=== PATIENT | male | born 1965 | race Caucasian/White ===

== ENCOUNTER 2019-01-06 23:55 | Inpatient (IN) | payer SELFPAY, OTHER ==
[2019-01-07] MEDS ORDERED: Lorazepam 2 MG/ML VIAL ONE ×2 (00:10→00:29)
[2019-01-07 00:28] LABS: Hemoglobin 14.9 g/dL (14.0-18.0); Mean Corpuscular HGB CONC 33.9 g/dL (32.0-36.0); Mean Corpuscular Hemoglobin 32.1 pg (27.0-31.0); Mean Corpuscular Volume 94.7 fL (78.0-98.0); Mean Platelet Volume 7.3 fL (7.4-10.4); Platelet Count 234 thou/uL (130-400); RBC Distribution Width 12.3 % (11.5-14.5); Red Blood Cell (RBC) Count 4.65 mill/uL (4.70-6.10)
[2019-01-07 00:41] LABS: ALT (SGPT) 26 U/L (8-55); AST (SGOT) 23 U/L (5-34); Albumin 3.9 g/dL (3.5-5.0); Alcohol 80 mg/dL (Less than 10); Alkaline Phosphatase 72 U/L (40-110); Anion Gap 16 mmol/L (10-20); BUN (Urea Nitrogen) 11 mg/dL (8.4-25.7); Bilirubin, Total 0.5 mg/dL (0.2-1.2); CK (CPK) 148 U/L (30-200); Calc. Creatinine Clearance 0 mL/min (70-130); Calcium 8.3 mg/dL (7.8-10.44); Carbon Dioxide 17 mmol/L (22-29); Chloride 110 mmol/L (98-107); Estimated GFR-MDRD Greater than 90; Globulin 2.1 g/dL (2.4-3.5); Glucose 83 mg/dL (70-105); Sodium 139 mmol/L (136-145)
[2019-01-07 00:45] LABS: Band 7 % (5-11); Eosinophils 1 % (0-10); Lymphocytes 2 % (21-51); MDiff Complete? YES; Monocytes 5 % (0-10); Neutrophil 85 % (42-75)
--- NOTE | 2019-01-07 03:34 | PDOC.HHP ---
Hospitalist HPI - History of Present Illness Chest pain History of Present Illness: Patient is a 53 year old male with PMH cocaine, alcohol abuse, HCV infection who presents to ER today for chest pain and cocaine/alcohol abuse. Patient refuses to talk to me currently, states "nope" and "im fine" to all questions. All information taken from nursing and ER/EMS medical records. Patient presented today with a sharp chest pain and tachycardia after [id number] dose of cocaine today. Afebrile, displayed sinus tachycardia between 100 and 120 on arrival, improved to 90s with ativan and other interventions in ED, currently patient denies chest pain. He also reported drinking a 6 pack between noon and 3pm. Cocaine use was later in night, used 15g cocaine as opposed to the normal 5-10 that he normally takes. Currenlty patient sleeping peacefully, blood pressure wnl. He had an EKG in the ED wiuthout acute changes. per ER records patinet endorsed SI and HI earlier, on suicide watch and MHMR consult placed in ED Hospitalist ROS - Review of Systems ROS unobtainable: due to mental status (patient refusing to talk) - Medication Medications: reviewed, no known home meds Hospitalist History - Past Medical History Other Medical History: cocaine abuse alcohol abuse - Past Surgical History Past Surgical History: reports: no pertinent history - Family History Family History: reports: no pertinent history - Social History Other Social History: alcohol, cocaine abuse - Exam General Appearance: NAD, awake alert Eye: PERRL, anicteric sclera ENT: normocephalic atraumatic, no oropharyngeal lesions, moist mucosa Neck: supple, symmetric, no JVD, no thyromegaly, no lymphadenopathy, no carotid bruit Heart: RRR, no murmur, no gallops, no rubs, normal peripheral pulses Respiratory: CTAB, no wheezes, no rales, no ronchi, normal chest expansion, no tachypnea, normal percussion Gastrointestinal: soft, non-tender, non-distended, normal bowel sounds, no palpable masses, no hepatomegaly, no splenomegaly, no bruit Extremities: no cyanosis, no clubbing, no edema Skin: normal turgor, no lesions, no rashes Neurological: cranial nerve grossly intact, normal sensation to touch, no weakness, no focal deficits, no new deficit Musculoskeletal: normal tone, normal strength, no muscle wasting Psychiatric: normal affect, normal behavior, A&O x 3 Hospitalist Results - Labs Result Diagrams: 01/07/19 00:13 01/07/19 00:13 Lab results: WBC 19.0 thou/uL (4.8-10.8) H 01/07/19 00:13 Hgb 14.9 g/dL (14.0-18.0) 01/07/19 00:13 Hct 44.0 % (42.0-52.0) 01/07/19 00:13 MCV 94.7 fL (78.0-98.0) 01/07/19 00:13 Plt Count 234 thou/uL (130-400) 01/07/19 00:13 Band Neuts % (Manual) 7 % (5-11) 01/07/19 00:13 Sodium 139 mmol/L (136-145) 01/07/19 00:13 Potassium 4.0 mmol/L (3.5-5.1) 01/07/19 00:13 Chloride 110 mmol/L (98-107) H 01/07/19 00:13 Carbon Dioxide 17 mmol/L (22-29) L 01/07/19 00:13 BUN 11 mg/dL (8.4-25.7) 01/07/19 00:13 Creatinine 0.75 mg/dL (0.7-1.3) 01/07/19 00:13 Glucose 83 mg/dL (70-105) 01/07/19 00:13 Calcium 8.3 mg/dL (7.8-10.44) 01/07/19 00:13 Total Bilirubin 0.5 mg/dL (0.2-1.2) 01/07/19 00:13 AST 23 U/L (5-34) 01/07/19 00:13 ALT 26 U/L (8-55) 01/07/19 00:13 Alkaline Phosphatase 72 U/L (40-110) 01/07/19 00:13 Creatine Kinase 148 U/L (30-200) 01/07/19 00:13 Troponin I 0.013 ng/mL (< 0.028) 01/07/19 00:13 Serum Total Protein 6.0 g/dL (6.0-8.3) 01/07/19 00:13 Albumin 3.9 g/dL (3.5-5.0) 01/07/19 00:13 Additional comment: VITAL SIGNS MonJan 07, 2019 03:26 JOHN Parmar Azar BP: 119/62, Pulse: 98, Resp: 28, Pain: 0, O2 sat: 94 on Room Air, Time: 01/07/2019 03:26. - EKG Interpretation EKG: Conduction normal, ST segments normal, T waves normal, [place] normal, sinus tach rate of 115. Hospitalist H&P A/P - Problem (1) Cocaine abuse Code(s): F14.10 - COCAINE ABUSE, UNCOMPLICATED Status: Acute (2) Chest pain Code(s): R07.9 - CHEST PAIN, UNSPECIFIED Status: Acute (3) Suicidal ideations Code(s): R45.851 - SUICIDAL IDEATIONS Status: Acute (4) Leukocytosis Code(s): D72.829 - ELEVATED WHITE BLOOD CELL COUNT, UNSPECIFIED Status: Acute (5) Sinus tachycardia Code(s): R00.0 - TACHYCARDIA, UNSPECIFIED Status: Acute - Plan Plan: admit to floor, continue to monitor, trend troponins, needs likely psychiatric evaluation for suicidal ideations once medically cleared, will possibly withdraw from cocaine and alcohol in future. for now calm on ativan, refusing to speak to me. will conitnue to monitor
[2019-01-07] MEDS ORDERED: Labetalol HCl 100 MG/20 ML VIAL SLOW IVP PRN (03:40)
[2019-01-07] MEDS ORDERED: Lorazepam 2 MG/ML VIAL SLOW IVP PRN (03:41)
[2019-01-07] MEDS ORDERED: Ondansetron PF 4 MG/2 ML Vial IVP PRN (03:41)
[2019-01-07] MEDS ORDERED: Senokot S 8.6-50 MG TAB PO PRN (03:41)
[2019-01-07] MEDS ORDERED: Bisacodyl 10 MG SUPP PR PRN (03:41)
[2019-01-07] MEDS ORDERED: Bisacodyl 5 MG TAB PO PRN (03:41)
[2019-01-07] MEDS ORDERED: Acetaminophen 325 MG TAB PO PRN ×2 (03:41→07:24)
[2019-01-07 04:14] VITALS: BMI 28.5
[2019-01-07 04:40] LABS: Troponin I 0.018 ng/mL (< 0.028)
[2019-01-07] MEDS: Sodium Chloride 0.9% 1,000 ML IV SCH ×3 (04:48→21:38)
[2019-01-07 07:17] LABS: Troponin I Less than 0.010 ng/mL (< 0.028)
[2019-01-07] MEDS ORDERED: Loratadine 10 MG TAB PO PRN (07:24)
[2019-01-07] MEDS ORDERED: Cepastat Lozenges 1 LOZ PO PRN (07:24)
[2019-01-07] MEDS ORDERED: Nitroglycerin 0.4 MG TAB (25 Tab Bottle) SL PRN (07:24)
[2019-01-07] MEDS ORDERED: Ondansetron ODT 4 MG TAB PO PRN (07:24)
[2019-01-07] MEDS ORDERED: hydrALAZINE 20 MG/ML VIAL SLOW IVP PRN (07:24)
[2019-01-07] MEDS ORDERED: Artificial Tears 18 DROP/0.9 ML EA EYE PRN (07:24)
[2019-01-07] MEDS ORDERED: Calcium Carbonate 500 MG ChewTAB PO PRN (07:24)
[2019-01-07] MEDS ORDERED: Sodium Chloride 0.65% Nasal 44 ML BOT EA NARE PRN (07:24)
[2019-01-07] MEDS ORDERED: Zolpidem Tartrate 5 MG TAB PO PRN (07:24)
[2019-01-07] MEDS ORDERED: Loperamide HCl 2 MG CAP PO PRN (07:24)
[2019-01-07 07:57] LABS: Cardiac Risk 3.6 (Less than 4.5)
[2019-01-07] MEDS: Thiamine 100 MG TAB PO SCH (09:43)
[2019-01-07] MEDS: Cyanocobalamin (Vitamin B-12) 1,000 MCG TAB PO SCH (09:43)
[2019-01-07] MEDS: Folic Acid 1 MG TAB PO SCH (09:43)
[2019-01-07] MEDS: Multivitamin W/ Minerals 1 TAB PO SCH (09:43)
[2019-01-07] MEDS: Famotidine 20 MG TAB PO SCH ×2 (09:43→21:36)
[2019-01-07] MEDS: Enoxaparin Sodium 40 MG/0.4 ML SYRINGE SC SCH (09:43)
[2019-01-07] MEDS: Diabetic Tussin 200 MG/10 ML UDCUP PO PRN ×3 (09:46→22:12)
--- NOTE | 2019-01-07 10:19 | PDOC.HOSPP ---
- Subjective Encounter Date: 01/07/19 Encounter Time: 07:40 Subjective: pt denies SI, he feels OK, no chest pain, no fever Patient seen and examined. No new complaints. No overnight events - Objective Vital Signs & Weight: Vital Signs (12 hours) Temp Pulse Resp BP Pulse Ox 01/07/19 07:43 98.9 F 96 24 H 137/79 93 L 01/07/19 04:00 106 H 24 H 121/70 97 Weight Weight 187 lb 6.287 oz I&O: 01/06/19 01/07/19 01/08/19 06:59 06:59 06:59 Intake Total 133 Balance 133 Result Diagrams: 01/07/19 00:13 01/07/19 00:13 Radiology Reviewed by me: Yes EKG Reviewed by me: Yes Hospitalist ROS - Review of Systems ENT: denies: ear pain, ear discharge, nose pain, nose discharge, nose congestion , mouth pain, mouth swelling, throat pain, throat swelling, other Respiratory: denies: cough, dry, shortness of breath, hemoptysis, SOB with excertion, pleuritic pain, sputum, wheezing, other Cardiovascular: denies: chest pain, palpitations, orthopnea, paroxysmal noc. dyspnea, edema, light headedness, other Gastrointestinal: denies: nausea, vomiting, abdominal pain, diarrhea, constipation, melena, hematochezia, other Genitourinary: denies: dysuria, frequency, incontinence, hematuria, retention, other Musculoskeletal: denies: neck pain, shoulder pain, arm pain, back pain, hand pain, leg pain, foot pain, other Skin: denies: rash, lesions, veronica, bruising, other - Medication Medications: Active Medications Generic Name Dose Route Start Last Admin Trade Name Fabianq PRN Reason Stop Dose Admin Cyanocobalamin 1,000 mcg 01/07/19 09:00 01/07/19 09:43 Vitamin B-12 PO 1,000 mcg DAILY JIMMIE Administration Enoxaparin Sodium 40 mg 01/07/19 09:00 01/07/19 09:43 Lovenox SC 40 mg 0900 JIMMIE Administration Famotidine 20 mg 01/07/19 09:00 01/07/19 09:43 Pepcid PO 20 mg BID JIMMIE Administration Folic Acid 1 mg 01/07/19 09:00 01/07/19 09:43 Folvite PO 1 mg DAILY JIMMIE Administration Guaifenesin 200 mg 01/07/19 07:24 01/07/19 09:46 Robitussin Sf PO 200 mg Q4H PRN Administration Cough Sodium Chloride 1,000 mls @ 125 mls/hr 01/07/19 03:45 01/07/19 04:48 Normal Saline 0.9% IV 1,000 mls .Q8H JIMMIE Administration Iron/Minerals/Multivitamins 1 tab 01/07/19 09:00 01/07/19 09:43 Theragran M PO 1 tab DAILY JIMMIE Administration Thiamine HCl 100 mg 01/07/19 09:00 01/07/19 09:43 Thiamine PO 100 mg DAILY JIMMIE Administration - Exam General Appearance: NAD, awake alert Eye: PERRL, anicteric sclera ENT: normocephalic atraumatic, no oropharyngeal lesions Neck: supple, symmetric, no JVD, no thyromegaly Heart: RRR, no murmur, no gallops, no rubs, normal peripheral pulses Respiratory: CTAB, no wheezes, no rales, no ronchi, normal chest expansion Gastrointestinal: soft, non-tender, non-distended, normal bowel sounds Extremities: no cyanosis, no clubbing, no edema Skin: normal turgor, no lesions, no rashes Neurological: cranial nerve grossly intact, no focal deficits Musculoskeletal: normal tone, normal strength, no muscle wasting Psychiatric: normal affect, normal behavior, A&O x 3 Hosp A/P (1) Chest pain Code(s): R07.9 - CHEST PAIN, UNSPECIFIED Status: Acute (2) Cocaine abuse Code(s): F14.10 - COCAINE ABUSE, UNCOMPLICATED Status: Acute (3) Leukocytosis Code(s): D72.829 - ELEVATED WHITE BLOOD CELL COUNT, UNSPECIFIED Status: Acute (4) Sinus tachycardia Code(s): R00.0 - TACHYCARDIA, UNSPECIFIED Status: Acute (5) Alcohol abuse Code(s): F10.10 - ALCOHOL ABUSE, UNCOMPLICATED Status: Chronic - Plan old records reviewed/req 01/07/19- pt does not have suicidal ideation, no need for sitter, continue to monitor today, repeat labs tomorrow, counselled to avoid polysubstance abuse, echo today
[2019-01-07 12:28] LABS: HBCM Index 0.07 S/CO (0-0.79); HBSAg Index 0.17 S/CO (0-0.99); Hep A IgM AB Non-Reactive (NonReactive); Hep B Surf Ag Non-Reactive S/CO (NonReactive); Hepatitis B Core IgM Abs Non-Reactive (NonReactive)
[2019-01-07 12:30] LABS: Hep C IgG Ab Reflex HepC Qnt (NonReactive); Hep C Index 12.63 S/CO (0-0.79)
[2019-01-07] MEDS ORDERED: Morphine 2 MG/ML SYRINGE SLOW IVP SCH (13:45)
[2019-01-07 14:10] LABS: Amphetamine Not Detected (NotDetected); Barbiturates Screen Not Detected (NotDetected); Benzodiazepine Screen Detected (NotDetected); Cocaine Metabolite Screen Detected (NotDetected); Medtox Control Line Valid? VALID (VALID); Medtox Reader # READER 1; Methadone Not Detected (NotDetected); Methamphetamine Not Detected (NotDetected); Opiate Screen Not Detected (NotDetected); Oxycodone Screen Not Detected (NotDetected); Phencyclidine (PCP) Not Detected (NotDetected); THC/Cannabinoid Screen Not Detected (NotDetected); Tricyclic Screen Not Detected (NotDetected)
[2019-01-07] MEDS: HYDROcodone/Acetaminophen 5/325 mg Tablet PO PRN ×2 (17:58→22:12)
[2019-01-08] MEDS: Diabetic Tussin 200 MG/10 ML UDCUP PO PRN (02:37)
[2019-01-08] MEDS: HYDROcodone/Acetaminophen 5/325 mg Tablet PO PRN ×5 (02:37→21:04)
[2019-01-08] MEDS: Sodium Chloride 0.9% 1,000 ML IV SCH (05:48)
[2019-01-08 06:19] LABS: #Basophils 0.1 thou/uL (0.0-0.2); #Eosinphils 0.3 thou/uL (0.0-0.7); #Lymphocytes 1.7 thou/uL (1.20-3.40); #Monocytes 1.4 thou/uL (0.11-0.59); #Neutrophils 12.3 thou/uL (1.40-6.50); %Basophils 0.5 % (0.0-1.0); %Eosinophils 2.1 % (0.0-10.0); %Lymphocytes 10.5 % (21.0-51.0); %Monocytes 9.1 % (0.0-10.0); %Neutrophils 77.8 % (42.0-75.0); Hemoglobin 13.6 g/dL (14.0-18.0); Mean Corpuscular HGB CONC 33.4 g/dL (32.0-36.0); Mean Corpuscular Volume 95.8 fL (78.0-98.0); Platelet Count 201 thou/uL (130-400); RBC Distribution Width 12.2 % (11.5-14.5); Red Blood Cell (RBC) Count 4.27 mill/uL (4.70-6.10); White Blood Cell (WBC) Count 15.8 thou/uL (4.8-10.8)
[2019-01-08 06:27] LABS: Anion Gap 9 mmol/L (10-20); BUN (Urea Nitrogen) 7 mg/dL (8.4-25.7); Calc. Creatinine Clearance 139 mL/min (70-130); Calcium 8.1 mg/dL (7.8-10.44); Carbon Dioxide 24 mmol/L (22-29); Chloride 106 mmol/L (98-107); Estimated GFR-MDRD Greater than 90; Glucose 108 mg/dL (70-105); Sodium 135 mmol/L (136-145)
[2019-01-08 06:34] LABS: Troponin I 0.016 ng/mL (< 0.028)
[2019-01-08] MEDS: Cyanocobalamin (Vitamin B-12) 1,000 MCG TAB PO SCH (08:53)
[2019-01-08] MEDS: guaiFENesin ER 600 MG TAB PO SCH ×2 (08:54→20:03)
[2019-01-08] MEDS: Enoxaparin Sodium 40 MG/0.4 ML SYRINGE SC SCH (08:54)
[2019-01-08] MEDS: Folic Acid 1 MG TAB PO SCH (08:54)
[2019-01-08] MEDS: Thiamine 100 MG TAB PO SCH (08:54)
[2019-01-08] MEDS: Multivitamin W/ Minerals 1 TAB PO SCH (08:54)
[2019-01-08] MEDS: Famotidine 20 MG TAB PO SCH ×2 (08:54→20:03)
--- NOTE | 2019-01-08 11:01 | PDOC.HOSPP ---
- Subjective Encounter Date: 01/08/19 Encounter Time: 07:15 Subjective: pt has cough, has fever and he has high wbc count, his oxygen saturation also borderline - Objective Vital Signs & Weight: Vital Signs (12 hours) Temp Pulse Resp BP BP Pulse Ox 01/08/19 07:40 98.4 F 101 H 24 H 149/80 H 98 01/08/19 03:59 100.3 F H 92 18 137/79 97 01/07/19 23:35 98.7 F 101 H 21 H 133/80 95 Weight Weight 188 lb 4.8 oz I&O: 01/07/19 01/08/19 01/09/19 06:59 06:59 06:59 Intake Total 133 240 Output Total 500 600 Balance 133 500 -360 Result Diagrams: 01/08/19 05:37 01/08/19 05:37 EKG Reviewed by me: Yes Hospitalist ROS - Review of Systems Constitutional: reports: fever, weakness. denies: chills, sweats, malaise, other Respiratory: reports: cough, shortness of breath, SOB with excertion, sputum. denies: dry, hemoptysis, pleuritic pain, wheezing, other Cardiovascular: denies: chest pain, palpitations, orthopnea, paroxysmal noc. dyspnea, edema, light headedness, other Gastrointestinal: denies: nausea, vomiting, abdominal pain, diarrhea, constipation, melena, hematochezia, other Genitourinary: denies: dysuria, frequency, incontinence, hematuria, retention, other Musculoskeletal: denies: neck pain, shoulder pain, arm pain, back pain, hand pain, leg pain, foot pain, other Skin: denies: rash, lesions, veronica, bruising, other - Medication Medications: Active Medications Generic Name Dose Route Start Last Admin Trade Name Freq PRN Reason Stop Dose Admin Hydrocodone Bitart/Acetaminophen 1 tab 01/07/19 07:24 01/08/19 08:54 [place] 5/325 PO 1 tab Q4H PRN Administration Moderate Pain (4-6) Cyanocobalamin 1,000 mcg 01/07/19 09:00 01/08/19 08:53 Vitamin B-12 PO 1,000 mcg DAILY JIMMIE Administration Enoxaparin Sodium 40 mg 01/07/19 09:00 01/08/19 08:54 Lovenox SC 40 mg 0900 JIMMIE Administration Famotidine 20 mg 01/07/19 09:00 01/08/19 08:54 Pepcid PO 20 mg BID JIMMIE Administration Folic Acid 1 mg 01/07/19 09:00 01/08/19 08:54 Folvite PO 1 mg DAILY JIMMIE Administration Guaifenesin 200 mg 01/07/19 07:24 01/08/19 02:37 Robitussin Sf PO 200 mg Q4H PRN Administration Cough Guaifenesin 1,200 mg 01/08/19 09:00 01/08/19 08:54 Mucinex PO 1,200 mg Q12HR JIMMIE Administration Levofloxacin 750 mg/ Device 150 mls @ 100 mls/hr 01/08/19 08:00 01/08/19 08: 50 IVPB 150 mls 0800 JIMMIE Administration Iron/Minerals/Multivitamins 1 tab 01/07/19 09:00 01/08/19 08:54 Theragran M PO 1 tab DAILY JIMMIE Administration Ondansetron HCl 4 mg 01/07/19 03:41 01/07/19 17:58 Zofran IVP 4 mg Q6H PRN Administration Nausea/Vomiting Thiamine HCl 100 mg 01/07/19 09:00 01/08/19 08:54 Thiamine PO 100 mg DAILY JIMMIE Administration Throat Lozenges 1 meg 01/07/19 07:24 01/07/19 22:14 Cepastat Lozenges PO 1 meg Q2H PRN Administration Sore Throat - Exam General Appearance: NAD, awake alert Eye: PERRL, anicteric sclera ENT: normocephalic atraumatic, no oropharyngeal lesions Neck: supple, symmetric, no JVD, no thyromegaly Heart: RRR, no murmur, no gallops, no rubs Respiratory - other findings: coarse sound with few scattered rales Gastrointestinal: soft, non-tender, non-distended, normal bowel sounds Extremities: no cyanosis, no clubbing, no edema Skin: normal turgor, no lesions, no rashes Neurological: cranial nerve grossly intact, normal sensation to touch, no focal deficits Musculoskeletal: normal tone, normal strength, no muscle wasting Psychiatric: normal affect, normal behavior, A&O x 3 Hosp A/P (1) Sepsis Code(s): A41.9 - SEPSIS, UNSPECIFIED ORGANISM Status: Acute Qualifiers: Sepsis type: sepsis due to unspecified organism Acute respiratory failure type: with hypoxia (2) Community acquired bacterial pneumonia Code(s): J15.9 - UNSPECIFIED BACTERIAL PNEUMONIA Status: Acute (3) Chest pain Code(s): R07.9 - Status: Acute Qualifiers: Chest pain type: unspecified Qualified Code(s): R07.9 - Chest pain, unspecified (4) Cocaine abuse Code(s): F14.10 - COCAINE ABUSE, UNCOMPLICATED Status: Acute (5) Leukocytosis Code(s): D72.829 - ELEVATED WHITE BLOOD CELL COUNT, UNSPECIFIED Status: Acute (6) Sinus tachycardia Code(s): R00.0 - Status: Acute (7) Alcohol abuse Code(s): F10.10 - ALCOHOL ABUSE, UNCOMPLICATED Status: Chronic (8) Hepatitis C Code(s): B19.20 - UNSPECIFIED VIRAL HEPATITIS C WITHOUT HEPATIC COMA Status: Chronic - Plan old records reviewed/req, continue antibiotics, respiratory therapy 01/07/19- pt does not have suicidal ideation, no need for sitter, continue to monitor today, repeat labs tomorrow, counselled to avoid polysubstance abuse, echo today 01/08/19- today will change to inpt status, pt has underlying interstitial pneumonia, he will need iv levaquin, will add mucinex, start duoneb therapy and add solumderol, will transfer to medical floor, will repeat labs tomorrow, wean off oxygen as tolerated, DC IVF
[2019-01-08] MEDS: methylPREDNISolone Sod Succ 40 MG VIAL IVP SCH ×2 (13:08→21:05)
[2019-01-09] MEDS: HYDROcodone/Acetaminophen 5/325 mg Tablet PO PRN ×4 (00:56→13:06)
[2019-01-09] MEDS: Diabetic Tussin 200 MG/10 ML UDCUP PO PRN (05:01)
[2019-01-09] MEDS: methylPREDNISolone Sod Succ 40 MG VIAL IVP SCH ×2 (05:02→13:07)
[2019-01-09 06:29] LABS: #Lymphocytes 1.1 thou/uL (1.20-3.40); #Monocytes 0.9 thou/uL (0.11-0.59); #Neutrophils 12.5 thou/uL (1.40-6.50); %Basophils 0.1 % (0.0-1.0); %Eosinophils 0.3 % (0.0-10.0); %Lymphocytes 7.6 % (21.0-51.0); %Monocytes 6.2 % (0.0-10.0); %Neutrophils 85.8 % (42.0-75.0); Hemoglobin 13.7 g/dL (14.0-18.0); Mean Corpuscular HGB CONC 32.1 g/dL (32.0-36.0); Mean Corpuscular Hemoglobin 30.7 pg (27.0-31.0); Mean Corpuscular Volume 95.4 fL (78.0-98.0); Platelet Count 239 thou/uL (130-400); Red Blood Cell (RBC) Count 4.47 mill/uL (4.70-6.10); White Blood Cell (WBC) Count 14.6 thou/uL (4.8-10.8)
[2019-01-09 06:57] LABS: Anion Gap 15 mmol/L (10-20); BUN (Urea Nitrogen) 9 mg/dL (8.4-25.7); Calc. Creatinine Clearance 137 mL/min (70-130); Carbon Dioxide 21 mmol/L (22-29); Chloride 106 mmol/L (98-107); Estimated GFR-MDRD Greater than 90; Glucose 190 mg/dL (70-105); Potassium 3.9 mmol/L (3.5-5.1); Sodium 138 mmol/L (136-145)
[2019-01-09] MEDS: Cyanocobalamin (Vitamin B-12) 1,000 MCG TAB PO SCH (09:26)
[2019-01-09] MEDS: Famotidine 20 MG TAB PO SCH (09:26)
[2019-01-09] MEDS: Folic Acid 1 MG TAB PO SCH (09:26)
[2019-01-09] MEDS: Multivitamin W/ Minerals 1 TAB PO SCH (09:26)
[2019-01-09] MEDS: guaiFENesin ER 600 MG TAB PO SCH (09:26)
[2019-01-09] MEDS: Thiamine 100 MG TAB PO SCH (09:26)
[2019-01-09] MEDS: Enoxaparin Sodium 40 MG/0.4 ML SYRINGE SC SCH (09:27)
[2019-01-09 11:41] VITALS: BP 135/72; TEMP 97.6
[2019-01-09 14:09] LABS: Hep C PCR-Quant HCV Not Detected IU/mL (.)
--- NOTE | 2019-01-10 06:22 | PQF ---
[employer] Checkroom Chief Crystal Reports Winform Viewer ROYCE WING SALIM NOORJIBHAI MD [id number] CLINICAL DOCUMENTATION CLARIFICATION FORM: POST DISCHARGE Addendum to original discharge summary date: ____ Late entry note date: __ DATE: 01/10/19 ATTN: Jamarcus Arora Please exercise your independent, professional judgment in responding to the clarification form. Clinical indicators are provided on the bottom of this form for your review Can you please further specify the etiology of Chest pain? Please check appropriate box(s): [ ]Chest pain due to cocaine/alcohol abuse [ ]Chest pain due to Sepsis [ ]Chest pain due to pneumonia [ ]Chest pain due Acute respiratory failure [ ] Other diagnosis please specify [ ] Unable to determine In addition, please specify: Present on Admission (POA): [ ] Yes [ ] No [ ] Unable to determine For continuity of documentation, please document condition throughout progress notes and discharge summary. Thank You. CLINICAL INDICATORS - SIGNS / SYMPTOMS /LABS Hospitalist H andP pg.1- presents to ER today for chest pain and cocaine/ alcohol abuse H and P pg.1- Afibrile, displayed sinus tachycardia between 100 and 120 on arrival H and P pg.1- ROS unable to obtained due to mental status H and p pg.1- Lab result: WBC 190H H and P pg.3- Leukocytosis Hospitalist PN Dr. Arora01/08 pg.4- Sepsis Hospitalist PN Dr. Arora01/08 pg.4- acute respiratory failure with hypoxia Hospitalist PN Dr. Arora01/08 pg.4- community acquired pneumonia Hospitalist PN Dr. Arora01/08 pg.5- Patient has underlying interstitial pneumonia RISK FACTORS Cocaine abuse_ H and P pg.1 Alcohol abuse- H and P pg.1 Sepsis-Hospitalist PN Dr. Arora01/08 pg.4 Pneumonia--Hospitalist PN Dr. Arora10/ pg.4 TREATMENTS: Respiratory therapy-Hospitalist PN Dr. Arora10/ pg.5 IV Fluids- JUN 16 IV antibiotics- JUN 16 (This form is maintained as a part of the permanent medical record) 2014 [employer]. All Rights Reserved Laron [email or web address] [not provided] MTDD
--- NOTE | 2019-01-10 12:12 | DIS ---
DATE OF ADMISSION: 01/07/2019 DATE OF DISCHARGE: 01/09/2019 PRIMARY CARE PHYSICIAN: None (the patient referred to [facility]). CHIEF COMPLAINT/REASON FOR ADMISSION: Chest pain in the context of cocaine/ alcohol abuse. HISTORY OF PRESENT ILLNESS: Mr. Dixon is a 53-year-old gentleman, history of cocaine addiction, alcohol abuse, hepatitis C infection, presenting to the emergency department for chest pain and cocaine/alcohol abuse. Initially, a reticent history social media developer, with time, able to provide some additional history. On a previous ER visit, 01/06/2019, findings of prominent interstitial markings noted concerning for mild edema. Followup echocardiogram shows preserved ejection fraction 60% to 65% and no acute valvular pathology. Mr. Dixon was treated empirically for atypical pulmonary infection. Additionally, given steroids as adjunct. On my visit today, we discussed cocaine use, alcohol use, and tobacco dependence. It is possible that the interstitial changes noted on chest x ray are secondary to cocaine inhalation. He plans to continue smokeless tobacco, but states he will no longer smoke cigarettes. Additionally, he will seek care for cocaine and alcohol use. He has been to rehabilitation programs in the past and is eager for abstinence in this regard. On admission, his diagnosis was sepsis secondary to pulmonary source with findings as hypoxemia. This appears to be showing interval improvement. Initial concerns regarding suicidal ideation on ER triage, on follow up questioning patient has no signs/symptoms/endorsements of suicidality or self harm. DISCHARGE DIAGNOSES: 1. Sepsis secondary to pulmonary source with imaging notable for atypical community-acquired pneumonia versus crack cocaine induced interstitial changes ( inflammatory pneumonitis), present on admission and unable to determine further specific etiology. 2. Cocaine abuse. 3. Chest pain, secondary to chest wall pain. 4. Leukocytosis, improved. 5. Sinus tachycardia. 6. Alcohol abuse. 7. Chronic hepatitis C. On the day of discharge, he is up, ambulating, feeling much improved. He appears to be responding to steroid therapy, with plans for discharge home today. PHYSICAL EXAMINATION: LUNGS: Lung person are overall clear with some rare wheezing. Aeration is good bilaterally. HEART: Regular rate, rhythm. ABDOMEN: Soft and nontender. EXTREMITIES: He has no significant lower extremity edema. DISCHARGE MEDICATIONS: As follows: 1. Levaquin 750 mg p.o. daily for 7 days. 2. Prednisone 10 mg p.o. daily for 3 days. 3. Tramadol 50 mg p.o. q.4 hourly p.r.n. chest wall pain. Prescription provided for 30 tablets, no refills. 4. Multivitamin p.o. daily. OTHER INSTRUCTIONS: Alcohol cessation, tobacco cessation, cocaine cessation. Discussed the dangers of inhaled cocaine, especially in regard to additional exposure to interstitial pulmonary infections. He demonstrates understanding. DIET: Regular. ACTIVITY: As tolerated. FOLLOWUP: Follow up with [facility] in [place]. TIME SPENT: Time spent on discharge and counseling 35 minutes. Job ID: [id number] MTDD
--- NOTE | 2019-01-12 10:48 | EKG ---
Test Reason : Blood Pressure : / mmHG Vent. Rate : 115 BPM Atrial Rate : 115 BPM P-R Int : 154 ms QRS Dur : 104 ms QT Int : 334 ms P-R-T Axes : 034 029 036 degrees QTc Int : 462 ms Sinus tachycardia Otherwise normal ECG Confirmed by JARAD LAWRENCE, JEFFERSON Thakur ([id number]), purchasing expeditor VIMAL GATICA ([id number]) on 01/12/2019 10:47:59 AM Referred By: Confirmed By:JEFFERSON ABRAHAM MD
== END 2019-01-09 15:02 | disposition home or self-care (01) | DRG 871 ==
LOC: ERS 23:55 → OBSVTOIN 01-07 01:05 → 2SW 01-07 01:05 → T4-A 01-08 11:51
PROVIDERS: ADMIT Internal Medicine; ATTEND Internal Medicine
DX: A41.9 Sepsis, unspecified organism (principal); J18.9 Pneumonia, unspecified organism; R45.851 Suicidal ideations; T40.5X1A Poisoning by cocaine, accidental (unintentional), initial encounter; B18.2 Chronic viral hepatitis C; F14.10 Cocaine abuse, uncomplicated; F10.10 Alcohol abuse, uncomplicated; D72.829 Elevated white blood cell count, unspecified; R00.0 Tachycardia, unspecified
CPT/HCPCS: 36415; 80048; 80053; 80061; 80074; 80306; 80307; 82550; 84484; 85025; 87522; 93005; 93306; 94640; 96361; 96374; J1650; J1956; J2060; J2270; J2405; J2920; J7620; Q0162

== ENCOUNTER 2020-04-06 05:16 | Emergency (ER) | payer SELFPAY ==
[2020-04-06 06:41] LABS: #Basophils 0.1 thou/uL (0.0-0.2); #Eosinphils 0.3 thou/uL (0.0-0.7); #Monocytes 0.9 thou/uL (0.11-0.59); %Basophils 0.6 % (0.0-1.0); %Eosinophils 2.1 % (0.0-10.0); %Lymphocytes 16.4 % (21.0-51.0); %Monocytes 7.7 % (0.0-10.0); %Neutrophils 73.3 % (42.0-75.0); Hemoglobin 15.1 g/dL (14.0-18.0); Mean Corpuscular HGB CONC 32.9 g/dL (32.0-36.0); Mean Corpuscular Hemoglobin 31.6 pg (27.0-31.0); Mean Corpuscular Volume 96.1 fL (78.0-98.0); Mean Platelet Volume 8.1 fL (7.4-10.4); Platelet Count 241 thou/uL (130-400); RBC Distribution Width 12.2 % (11.5-14.5); Red Blood Cell (RBC) Count 4.77 mill/uL (4.70-6.10); White Blood Cell (WBC) Count 12.2 thou/uL (4.8-10.8)
[2020-04-06 06:45] LABS: ALT (SGPT) 25 U/L (8-55); AST (SGOT) 24 U/L (5-34); Albumin 3.9 g/dL (3.5-5.0); Alkaline Phosphatase 85 U/L (40-110); Anion Gap 15 mmol/L (10-20); BUN (Urea Nitrogen) 11 mg/dL (8.4-25.7); Bilirubin, Total 0.8 mg/dL (0.2-1.2); Calc. Creatinine Clearance 0 mL/min (70-130); Calcium 8.7 mg/dL (7.8-10.44); Carbon Dioxide 25 mmol/L (22-29); Chloride 102 mmol/L (98-107); Globulin 2.7 g/dL (2.4-3.5); Glucose 113 mg/dL (70-105); Potassium 4.8 mmol/L (3.5-5.1); Protein, Total 6.6 g/dL (6.0-8.3); Sodium 137 mmol/L (136-145)
[2020-04-06 06:46] LABS: Acetaminophen Less than 6.0 mcg/mL (10.0-30.0); Alcohol Less than 10 mg/dL (Less than 10); Salicylate Less than 8.0 mg/dL (15.0-30.0)
--- NOTE | 2020-04-06 07:36 | RAD ---
Chest one view HISTORY: Chest pain. COMPARISON: 01/06/2019. FINDINGS: Cardiac silhouette is magnified by projection. Vasculature is unremarkable. Mediastinum is midline. No lobar consolidation or evidence of pneumothorax. Calcified granuloma at th e right lateral lung base is consistent with healed granulomatous disease. IMPRESSION : No active cardiopulmonary abnormalities are demonstrated.
[2020-04-06] MEDS ORDERED: Ibuprofen 800 MG TAB ONE (07:39)
[2020-04-06 08:51] LABS: Amphetamine Detected (NotDetected); Barbiturates Screen Not Detected (NotDetected); Benzodiazepine Screen Not Detected (NotDetected); Cocaine Metabolite Screen Not Detected (NotDetected); Medtox Control Line Valid? VALID (VALID); Medtox Reader # READER 4; Methadone Not Detected (NotDetected); Methamphetamine Detected (NotDetected); Opiate Screen Not Detected (NotDetected); Oxycodone Screen Not Detected (NotDetected); Phencyclidine (PCP) Not Detected (NotDetected); THC/Cannabinoid Screen Detected (NotDetected); Tricyclic Screen Not Detected (NotDetected)
[2020-04-06 08:53] LABS: Bacteria/HPF None Seen HPF (None Seen); Bilirubin Negative (Negative); Blood, Urine Negative (Negative); Clarity Clear (Clear); Glucose, Urine (Dipstick) Normal (Negative); Ketone, Urine 10 mg/dL (Negative); Leukocyte 75 Leu/uL (Negative); Nitrite Negative (Negative); Protein, Urine (Dipstick) 10 mg/dL (Neg-Trace); RBC/HPF 0-3 HPF (0-3); Specific Gravity, Urine 1.016 (1.002-1.036); Squamous Epithelial None Seen HPF (0-3); pH, Urine 6.5 (5.0-9.0)
[2020-04-06] MEDS ORDERED: Azithromycin 250 MG TAB ONE (10:27)
[2020-04-06] MEDS ORDERED: cefTRIAXone\\ROCEPHIN 250 MG VIAL ONE (10:27)
[2020-04-06] MEDS ORDERED: Lidocaine 1% PF 5 ML VIAL ONE (10:27)
[2020-04-09 21:21] LABS: Chlam.trachomatis by PCR,Urine Not Detected (NotDetected)
== END 2020-04-06 10:46 | disposition home or self-care (01) ==
LOC: ERS 05:16
DX: R07.89 Other chest pain (principal); N39.0 Urinary tract infection, site not specified; F15.10 Other stimulant abuse, uncomplicated; F12.10 Cannabis abuse, uncomplicated; R10.9 Unspecified abdominal pain; R10.811 Right upper quadrant abdominal tenderness; R10.813 Right lower quadrant abdominal tenderness; F17.210 Nicotine dependence, cigarettes, uncomplicated
CPT/HCPCS: 36415; 71045; 80053; 80306; 80307; 81003; 81015; 84484; 85025; 87491; 87591; 93005; 96372; J0696

== ENCOUNTER 2020-04-09 19:20 | Emergency (ER) | payer SELFPAY ==
[~2020-04-09 19:20] MED LIST: Iopamidol-370 76% 500 ML 1 ML ONE
[2020-04-09] MEDS ORDERED: Ketorolac Tromethamine 30 MG/ML VIAL ONE (19:40)
[2020-04-09] MEDS ORDERED: Morphine 4 MG/ML VIAL ONE (19:40)
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
[2020-04-09 20:08] LABS: #Basophils 0.2 thou/uL (0.0-0.2); #Eosinphils 0.6 thou/uL (0.0-0.7); #Lymphocytes 3.2 thou/uL (1.20-3.40); #Monocytes 0.8 thou/uL (0.11-0.59); #Neutrophils 5.2 thou/uL (1.40-6.50); %Basophils 1.6 % (0.0-1.0); %Eosinophils 6.2 % (0.0-10.0); %Lymphocytes 32.2 % (21.0-51.0); %Monocytes 8.3 % (0.0-10.0); %Neutrophils 51.7 % (42.0-75.0); Mean Corpuscular HGB CONC 33.1 g/dL (32.0-36.0); Mean Corpuscular Hemoglobin 32.2 pg (27.0-31.0); Mean Corpuscular Volume 97.3 fL (78.0-98.0); Mean Platelet Volume 7.6 fL (7.4-10.4); Platelet Count 262 thou/uL (130-400); RBC Distribution Width 12.3 % (11.5-14.5); Red Blood Cell (RBC) Count 4.66 mill/uL (4.70-6.10)
[2020-04-09 20:13] LABS: ALT (SGPT) 29 U/L (8-55); AST (SGOT) 31 U/L (5-34); Albumin 4.1 g/dL (3.5-5.0); Alkaline Phosphatase 117 U/L (40-110); Anion Gap 16 mmol/L (10-20); BUN (Urea Nitrogen) 9 mg/dL (8.4-25.7); Bilirubin, Total 0.2 mg/dL (0.2-1.2); Calc. Creatinine Clearance 0 mL/min (70-130); Calcium 8.3 mg/dL (7.8-10.44); Carbon Dioxide 22 mmol/L (22-29); Chloride 109 mmol/L (98-107); Glucose 89 mg/dL (70-105); Potassium 4.2 mmol/L (3.5-5.1); Protein, Total 7.1 g/dL (6.0-8.3); Sodium 143 mmol/L (136-145)
[2020-04-09 20:14] LABS: Acetaminophen Less than 6.0 mcg/mL (10.0-30.0); Alcohol 299 mg/dL (Less than 10); Salicylate Less than 8.0 mg/dL (15.0-30.0)
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
--- NOTE | 2020-04-11 12:19 | EKG ---
Test Reason : Blood Pressure : / mmHG Vent. Rate : 096 BPM Atrial Rate : 096 BPM P-R Int : 152 ms QRS Dur : 098 ms QT Int : 348 ms P-R-T Axes : 038 015 036 degrees QTc Int : 439 ms Normal sinus rhythm Normal ECG Confirmed by LEYLA CLEANING ([id number]), scientific editor TARIK SIMON ([id number]) on 04/11/2020 12:19:01 PM Referred By: Confirmed By:LEYLA CLEANING
== END 2020-04-09 20:56 ==
LOC: ERS 19:20
DX: U07.1 COVID-19 (principal); S32.029A Unspecified fracture of second lumbar vertebra, initial encounter for closed fracture; F17.210 Nicotine dependence, cigarettes, uncomplicated; F10.129 Alcohol abuse with intoxication, unspecified; V40.9XXA Unspecified car occupant injured in collision with pedestrian or animal in traffic accident, initial encounter
CPT/HCPCS: 70450; 71045; 71260; 72125; 74177; 80053; 80307; 85025; 93005; 96374; 96375; J1885; J2270; Q9967

== ENCOUNTER 2020-06-15 05:15 | Emergency (ER) | payer SELFPAY ==
[2020-06-15 06:00] LABS: #Basophils 0.1 thou/uL (0.0-0.2); #Eosinphils 0.2 thou/uL (0.0-0.7); #Lymphocytes 2.3 thou/uL (1.20-3.40); #Neutrophils 7.3 thou/uL (1.40-6.50); %Basophils 0.8 % (0.0-1.0); %Eosinophils 1.4 % (0.0-10.0); %Lymphocytes 20.8 % (21.0-51.0); %Monocytes 9.5 % (0.0-10.0); %Neutrophils 67.5 % (42.0-75.0); Mean Corpuscular HGB CONC 33.7 g/dL (32.0-36.0); Mean Corpuscular Hemoglobin 32.4 pg (27.0-31.0); Mean Corpuscular Volume 96.3 fL (78.0-98.0); Mean Platelet Volume 7.3 fL (7.4-10.4); Platelet Count 247 thou/uL (130-400); RBC Distribution Width 12.6 % (11.5-14.5); Red Blood Cell (RBC) Count 4.62 mill/uL (4.70-6.10); White Blood Cell (WBC) Count 10.8 thou/uL (4.8-10.8)
[2020-06-15 06:23] LABS: ALT (SGPT) 110 U/L (8-55); AST (SGOT) 80 U/L (5-34); Alkaline Phosphatase 111 U/L (40-110); Anion Gap 14 mmol/L (10-20); BUN (Urea Nitrogen) 7 mg/dL (8.4-25.7); Bilirubin, Total 0.4 mg/dL (0.2-1.2); Calc. Creatinine Clearance 0 mL/min (70-130); Calcium 8.6 mg/dL (7.8-10.44); Carbon Dioxide 24 mmol/L (22-29); Chloride 106 mmol/L (98-107); Globulin 2.4 g/dL (2.4-3.5); Glucose 104 mg/dL (70-105); Potassium 3.9 mmol/L (3.5-5.1); Protein, Total 6.4 g/dL (6.0-8.3); Sodium 140 mmol/L (136-145)
== END 2020-06-15 06:05 | disposition home or self-care (01) ==
LOC: ERS 05:15
DX: F15.10 Other stimulant abuse, uncomplicated (principal); F41.9 Anxiety disorder, unspecified; F17.210 Nicotine dependence, cigarettes, uncomplicated
CPT/HCPCS: 36415; 71045; 80053; 84484; 85025; 93005

== ENCOUNTER 2020-12-24 02:48 | Observation (INO) | payer SELFPAY ==
[2020-12-24 03:28] LABS: #Basophils 0.1 thou/uL (0.0-0.2); #Eosinphils 0.1 thou/uL (0.0-0.7); #Lymphocytes 1.5 thou/uL (1.20-3.40); #Monocytes 0.7 thou/uL (0.11-0.59); #Neutrophils 14.8 thou/uL (1.40-6.50); %Basophils 0.5 % (0.0-1.0); %Eosinophils 0.4 % (0.0-10.0); %Lymphocytes 8.6 % (21.0-51.0); %Monocytes 4.1 % (0.0-10.0); %Neutrophils 86.4 % (42.0-75.0); Hemoglobin 14.8 g/dL (14.0-18.0); Mean Corpuscular HGB CONC 33.6 g/dL (32.0-36.0); Mean Corpuscular Hemoglobin 32.4 pg (27.0-31.0); Mean Corpuscular Volume 96.4 fL (78.0-98.0); Mean Platelet Volume 7.2 fL (7.4-10.4); Platelet Count 211 thou/uL (130-400); RBC Distribution Width 12.4 % (11.5-14.5); Red Blood Cell (RBC) Count 4.57 mill/uL (4.70-6.10); White Blood Cell (WBC) Count 17.1 thou/uL (4.8-10.8)
[2020-12-24 03:50] LABS: ALT (SGPT) 38 U/L (8-55); AST (SGOT) 35 U/L (5-34); Albumin 4.1 g/dL (3.5-5.0); Alkaline Phosphatase 77 U/L (40-110); Anion Gap 16 mmol/L (10-20); BUN (Urea Nitrogen) 9 mg/dL (8.4-25.7); Bilirubin, Total 0.6 mg/dL (0.2-1.2); Calc. Creatinine Clearance 0 mL/min (70-130); Calcium 8.9 mg/dL (7.8-10.44); Carbon Dioxide 18 mmol/L (22-29); Chloride 105 mmol/L (98-107); Globulin 2.4 g/dL (2.4-3.5); Glucose 111 mg/dL (70-105); Potassium 3.8 mmol/L (3.5-5.1); Protein, Total 6.5 g/dL (6.0-8.3); Sodium 135 mmol/L (136-145)
[2020-12-24 05:27] LABS: SARS-CoV-2 NAA Rapid Test Not Detected (NotDetected)
[2020-12-24 07:15] LABS: Troponin I 0.018 ng/mL (< 0.028)
[2020-12-24 09:51] LABS: Troponin I 0.012 ng/mL (< 0.028)
[2020-12-24] MEDS ORDERED: Acetaminophen 325 MG TAB PO PRN (11:58)
[2020-12-24] MEDS ORDERED: Ondansetron ODT 4 MG TAB PO PRN (11:58)
[2020-12-24] MEDS ORDERED: Sodium Chloride 0.9% 1,000 ML IV SCH (12:00)
[2020-12-24] MEDS ORDERED: Senokot S 8.6-50 MG TAB PO PRN (12:21)
[2020-12-24] MEDS ORDERED: Albuterol Sulfate 2.5 mg/3 ml Neb NEB PRN (12:27)
[2020-12-24] MEDS ORDERED: Aspirin 81 mg Enteric Coated Tablet PO SCH (12:30)
[2020-12-24] MEDS ORDERED: Zinc Sulfate 220 MG CAP ONE (13:39)
[2020-12-24] MEDS ORDERED: Ascorbic Acid 500 mg Chewable Tablet ONE (13:39)
[2020-12-24] MEDS ORDERED: Aspirin 81 mg Enteric Coated Tablet ONE (13:40)
[2020-12-24 13:43] LABS: CRP (Inflammatory) Less than 0.50 mg/dL (= or < 0.5); Magnesium 1.7 mg/dL (1.6-2.6)
[2020-12-24] MEDS: Ascorbic Acid 500 mg Chewable Tablet PO SCH (13:46)
[2020-12-24] MEDS: Zinc Sulfate 220 MG CAP PO SCH (13:46)
[2020-12-24 14:02] LABS: Ferritin 260.83 ng/mL (22-322)
[2020-12-24 14:22] LABS: Thyroid Stimulating Hormone 0.8263 uIU/mL (0.35-4.94)
[2020-12-24] MEDS ORDERED: Azithromycin 500 MG VIAL ONE (14:25)
[2020-12-24] MEDS ORDERED: Nicotine 14 MG PATCH ONE (14:28)
[2020-12-24] MEDS: Azithromycin 500 MG in Sodium Chloride 0.9% 250 ML 250 ML IVPB SCH (14:34)
[2020-12-24] MEDS: Nicotine 21 MG PATCH TD SCH (14:56)
[2020-12-24 16:28] VITALS: BMI 28.2
[2020-12-24] MEDS: cefTRIAXone\\ROCEPHIN 1 GM in Sodium Chloride 0.9% 100 ML IVPB SCH (18:00)
[2020-12-25 01:34] LABS: SARS-CoV-2 PCR by NAA Not Detected (NotDetected)
[2020-12-25 04:50] LABS: #Basophils 0.1 thou/uL (0.0-0.2); #Eosinphils 0.3 thou/uL (0.0-0.7); #Lymphocytes 2.1 thou/uL (1.20-3.40); #Monocytes 1.1 thou/uL (0.11-0.59); #Neutrophils 7.4 thou/uL (1.40-6.50); %Basophils 0.9 % (0.0-1.0); %Eosinophils 3.1 % (0.0-10.0); %Lymphocytes 18.8 % (21.0-51.0); %Monocytes 9.8 % (0.0-10.0); %Neutrophils 67.3 % (42.0-75.0); Mean Corpuscular HGB CONC 32.6 g/dL (32.0-36.0); Mean Corpuscular Hemoglobin 31.9 pg (27.0-31.0); Mean Platelet Volume 7.8 fL (7.4-10.4); Platelet Count 211 thou/uL (130-400); RBC Distribution Width 12.2 % (11.5-14.5); Red Blood Cell (RBC) Count 4.69 mill/uL (4.70-6.10)
[2020-12-25 05:09] LABS: ALT (SGPT) 38 U/L (8-55); AST (SGOT) 34 U/L (5-34); Albumin 3.8 g/dL (3.5-5.0); Alkaline Phosphatase 75 U/L (40-110); Anion Gap 12 mmol/L (10-20); BUN (Urea Nitrogen) 8 mg/dL (8.4-25.7); Bilirubin, Total 0.7 mg/dL (0.2-1.2); Calc. Creatinine Clearance 114 mL/min (70-130); Calcium 8.7 mg/dL (7.8-10.44); Carbon Dioxide 25 mmol/L (22-29); Chloride 105 mmol/L (98-107); Globulin 2.6 g/dL (2.4-3.5); Glucose 99 mg/dL (70-105); Potassium 4.6 mmol/L (3.5-5.1); Protein, Total 6.4 g/dL (6.0-8.3); Sodium 137 mmol/L (136-145)
[2020-12-25] MEDS: Guaifenesin DM 100-10/5 ML UDCUP PO PRN ×2 (08:19→19:52)
[2020-12-25] MEDS: Zinc Sulfate 220 MG CAP PO SCH (08:19)
[2020-12-25] MEDS: Ascorbic Acid 500 mg Chewable Tablet PO SCH (08:19)
[2020-12-25] MEDS: Aspirin 81 mg Enteric Coated Tablet PO SCH (08:20)
[2020-12-25] MEDS: Enoxaparin Sodium 40 MG/0.4 ML SYRINGE SC SCH (08:20)
[2020-12-25] MEDS ORDERED: Lorazepam 1 MG TAB PO PRN (10:13)
[2020-12-25] MEDS ORDERED: Thiamine HCl 200 MG/2 ML VIAL IM SCH (10:15)
[2020-12-25] MEDS ORDERED: Labetalol HCl 100 MG/20 ML VIAL SLOW IVP PRN (11:12)
[2020-12-25] MEDS ORDERED: Magnesium 2 GM/50 ML 2 GM in Premix Bag 1 BAG IVPB SCH (11:15)
[2020-12-25] MEDS: Albuterol Sulfate 2.5 mg/3 ml Neb IPPB SCH ×2 (14:00→21:31)
[2020-12-25] MEDS: cefTRIAXone\\ROCEPHIN 1 GM in Sodium Chloride 0.9% 100 ML IVPB SCH (15:00)
[2020-12-25] MEDS: Nicotine 21 MG PATCH TD SCH (15:00)
[2020-12-25] MEDS: Azithromycin 500 MG in Sodium Chloride 0.9% 250 ML 250 ML IVPB SCH (15:30)
[2020-12-25] MEDS ORDERED: Albuterol 200 PUFF (6.7GM INHALER) INH PRN (20:56)
[2020-12-25 23:15] LABS: Amphetamine Not Detected (NotDetected); Barbiturates Screen Not Detected (NotDetected); Benzodiazepine Screen Detected (NotDetected); Cocaine Metabolite Screen Detected (NotDetected); Methadone Not Detected (NotDetected); Methamphetamine Not Detected (NotDetected); Opiate Screen Not Detected (NotDetected); Oxycodone Screen Not Detected (NotDetected); Phencyclidine (PCP) Not Detected (NotDetected); THC/Cannabinoid Screen Detected (NotDetected); Tricyclic Screen Not Detected (NotDetected)
[2020-12-26] MEDS: Albuterol 200 PUFF (6.7GM INHALER) INH SCH ×4 (01:05→18:43)
[2020-12-26] MEDS: Thiamine 100 MG TAB PO SCH (08:01)
[2020-12-26] MEDS: Zinc Sulfate 220 MG CAP PO SCH (08:01)
[2020-12-26] MEDS: Ascorbic Acid 500 mg Chewable Tablet PO SCH (08:01)
[2020-12-26] MEDS: Folic Acid 1 MG TAB PO SCH (08:01)
[2020-12-26] MEDS: Aspirin 81 mg Enteric Coated Tablet PO SCH (08:01)
[2020-12-26] MEDS: Enoxaparin Sodium 40 MG/0.4 ML SYRINGE SC SCH (08:01)
[2020-12-26] MEDS: Multivitamin W/ Minerals 1 TAB PO SCH (08:01)
[2020-12-26] MEDS: Nicotine 21 MG PATCH TD SCH (13:25)
[2020-12-26] MEDS: Azithromycin 500 MG in Sodium Chloride 0.9% 250 ML 250 ML IVPB SCH (13:25)
[2020-12-26] MEDS: cefTRIAXone\\ROCEPHIN 1 GM in Sodium Chloride 0.9% 100 ML IVPB SCH (15:38)
[2020-12-26 17:52] LABS: #Basophils 0.1 thou/uL (0.0-0.2); #Eosinphils 0.4 thou/uL (0.0-0.7); #Lymphocytes 2.3 thou/uL (1.20-3.40); #Monocytes 1.1 thou/uL (0.11-0.59); #Neutrophils 6.7 thou/uL (1.40-6.50); %Basophils 0.8 % (0.0-1.0); %Eosinophils 3.8 % (0.0-10.0); %Lymphocytes 21.7 % (21.0-51.0); %Monocytes 10.6 % (0.0-10.0); %Neutrophils 63.1 % (42.0-75.0); Hemoglobin 14.6 g/dL (14.0-18.0); Mean Corpuscular HGB CONC 33.2 g/dL (32.0-36.0); Mean Corpuscular Hemoglobin 32.1 pg (27.0-31.0); Mean Corpuscular Volume 96.8 fL (78.0-98.0); Mean Platelet Volume 7.5 fL (7.4-10.4); Platelet Count 213 thou/uL (130-400); RBC Distribution Width 12.1 % (11.5-14.5); Red Blood Cell (RBC) Count 4.55 mill/uL (4.70-6.10); White Blood Cell (WBC) Count 10.7 thou/uL (4.8-10.8)
[2020-12-26 18:13] LABS: ALT (SGPT) 32 U/L (8-55); AST (SGOT) 24 U/L (5-34); Albumin 3.7 g/dL (3.5-5.0); Alkaline Phosphatase 69 U/L (40-110); Anion Gap 12 mmol/L (10-20); BUN (Urea Nitrogen) 10 mg/dL (8.4-25.7); Bilirubin, Total 0.4 mg/dL (0.2-1.2); Calc. Creatinine Clearance 129 mL/min (70-130); Calcium 8.5 mg/dL (7.8-10.44); Carbon Dioxide 23 mmol/L (22-29); Chloride 108 mmol/L (98-107); Globulin 2.3 g/dL (2.4-3.5); Glucose 92 mg/dL (70-105); Potassium 4.4 mmol/L (3.5-5.1); Sodium 139 mmol/L (136-145)
[2020-12-27] MEDS: Albuterol 200 PUFF (6.7GM INHALER) INH SCH ×2 (03:17→08:49)
[2020-12-27] MEDS: Ascorbic Acid 500 mg Chewable Tablet PO SCH (08:54)
[2020-12-27] MEDS: Aspirin 81 mg Enteric Coated Tablet PO SCH (08:54)
[2020-12-27] MEDS: Folic Acid 1 MG TAB PO SCH (08:54)
[2020-12-27] MEDS: Enoxaparin Sodium 40 MG/0.4 ML SYRINGE SC SCH (08:55)
[2020-12-27] MEDS: Zinc Sulfate 220 MG CAP PO SCH (08:55)
[2020-12-27] MEDS: Multivitamin W/ Minerals 1 TAB PO SCH (08:55)
[2020-12-27] MEDS: Thiamine 100 MG TAB PO SCH (08:55)
[2020-12-27 13:21] VITALS: BP 163/82; TEMP 98
== END 2020-12-27 13:15 | disposition home or self-care (01) ==
LOC: ERS 02:48 → ERHOLD 05:07 → 2NO 16:09 → 2SW 18:43
PROVIDERS: ADMIT Student in an Organized Health Care Education/Training Program; ATTEND Internal Medicine
DX: A41.9 Sepsis, unspecified organism (principal); J18.9 Pneumonia, unspecified organism; R07.89 Other chest pain; I10 Essential (primary) hypertension; F17.210 Nicotine dependence, cigarettes, uncomplicated; F12.10 Cannabis abuse, uncomplicated; F14.10 Cocaine abuse, uncomplicated; I45.10 Unspecified right bundle-branch block; Z59.0 Homelessness; Z20.822 Contact with and (suspected) exposure to COVID-19
CPT/HCPCS: 0240U; 36415; 71045; 71275; 80053; 80306; 82728; 83735; 83880; 84443; 84484; 85025; 86140; 93005; 96372; 96374; 96375; 96376; G0378; J0456; J0696; J1650; J3411; J3475; J3490; J7050; U0003; U0005